=== PATIENT | female | born 1945 | race Caucasian/White ===

== ENCOUNTER 2018-04-10 09:05 | Day surgery (SDC) | payer MEDICARE ==
[2018-04-07 13:12] VITALS: BMI 22.6
--- NOTE | 2018-04-10 16:46 | OP ---
DATE OF PROCEDURE: 04/10/2018 PROCEDURE PERFORMED: Esophagogastroduodenoscopy (diagnostic). INDICATIONS FOR PROCEDURE: Midepigastric/substernal chest pain, GERD. DESCRIPTION OF PROCEDURE: After the risks and benefits of the procedure were explained to the the patient including risks of bleeding, infection, perforation, reactions to anesthesia, aspiration, and/or pain, informed consent was obtained. The patient was then taken to the endoscopy suite, where deep sedation was administered via propofol and anesthesia support. Once adequate sedation was achieved, the standard gastroscope was introduced into the mouth with intubation of the esophagus, stomach, and proximal small intestine with the findings listed below. The patient tolerated the procedure well with no immediate perioperative complications. Upon completion of the procedure, all equipment was removed and the patient was taken to day stay in satisfactory condition. EGD FINDINGS: Esophagus: Normal-appearing mucosa was seen in the proximal and midesophagus. A partial, nonobstructive fibrous ring was seen in the distal esophagus at the gastroesophageal junction and occupied approximately 20% of the esophageal lumen. This was easily traversed with a standard gastroscope with no intervention taken on this particular ring due to lack of symptoms of dysphagia. Otherwise, there was no evidence of erosions, ulcerations, mass, lesions, or active/recent bleeding. The diaphragmatic pinch was seen at 40 cm while the GE junction was well seen at 37 cm denoting a 3-cm hiatal hernia. Stomach: Normal-appearing mucosa was seen in the gastric cardia, fundus, body, greater curvature, antrum, and incisura. There was no evidence of erosions, ulcerations, mass lesions, or active/recent bleeding. Given the low likelihood of progression to gastric cancer, no mapping or screening biopsies were taken. Duodenum: Normal-appearing mucosa was seen in both the duodenal bulb and second portion of the duodenum. There was no evidence of erosions, ulcerations or mass lesions. IMPRESSION: 1. A partial nonobstructive ring was seen in the distal esophagus occupying approximately 20% of the esophageal lumen, but easily traversed with the gastroscope. 2. A 3-cm hiatal hernia. 3. Otherwise, normal upper endoscopy. No etiology for her abdominal/chest pain was seen during the examination today. RECOMMENDATIONS: 1. We would continue omeprazole 40 mg daily 30 to 45 minutes before dinner given symptomatic relief while on this regimen. 2. We would highly recommend smoking cessation as well as avoidance of all NSAIDs. Continue to encourage standard acid reflux precautions. 3. Followup in the GI Clinic in 4 to 6 weeks for evaluation of symptoms at that time. Job ID: [id number]
== END 2018-04-10 13:11 | disposition home or self-care (01) ==
LOC: SDC 09:05
PROVIDERS: ATTEND Internal Medicine
PROC: 0DJ08ZZ Inspection of Upper Intestinal Tract, Via Natural or Artificial Opening Endoscopic (ICD-10-PCS; principal; 2018-04-10)
DX: K21.9 Gastro-esophageal reflux disease without esophagitis (principal); R10.13 Epigastric pain; K44.9 Diaphragmatic hernia without obstruction or gangrene; K22.2 Esophageal obstruction; E78.00 Pure hypercholesterolemia, unspecified; I26.99 Other pulmonary embolism without acute cor pulmonale; I10 Essential (primary) hypertension; F17.210 Nicotine dependence, cigarettes, uncomplicated; J44.9 Chronic obstructive pulmonary disease, unspecified; I25.2 Old myocardial infarction; M81.0 Age-related osteoporosis without current pathological fracture; I25.10 Atherosclerotic heart disease of native coronary artery without angina pectoris; Z86.711 Personal history of pulmonary embolism; Z95.5 Presence of coronary angioplasty implant and graft; Z88.8 Allergy status to other drugs, medicaments and biological substances; Z79.82 Long term (current) use of aspirin; Z79.899 Other long term (current) drug therapy

== ENCOUNTER 2022-12-27 10:23 | Outpatient (CLI) | payer MEDICARE | END 2022-12-27 10:24 | disposition home or self-care (01) | LOC: ULT 10:23 | PROVIDERS: ATTEND Family Medicine | DX: N17.9 Acute kidney failure, unspecified (principal) | CPT/HCPCS: 76770 ==